=== PATIENT | female | born 1960 | race Caucasian/White ===

== ENCOUNTER → 2023-10-15 08:54 | Outpatient (CLI) | payer OTHER, SELFPAY ==
--- NOTE | ~2023-10-15 | CT_ITS ---
EXAMINATION: CT sinus wo con DATE: 10/15/2023 09:08 INDICATION: Chronic pansinusitis TECHNIQUE: Computed tomography (CT) of the paranasal sinuses was performed without contrast. Iterativ e reconstruction technique was employed. Exam dose: 273.81 mGy-cm total exam DLP. COMPARISON: None FINDINGS: There is leftward deviation involving the upper portion of the nasal septum. There is prominent soft tissue thickening of the nasal turbinates, left greater than right. Intralamellar cell of the middle nasal turbinates. There is mild to moderate mucoperiosteal thickening along the anterior lower aspect of the right maxi llary sinus. There is mild soft tissue thickening in each maxillary ostium and infundibulum but no bl ockage. Bilateral Jeffy cells. The mastoid air cells are well-developed and aerated. Middle and inner ear apparatus appear unremarka ble. IMPRESSION: Leftward deviation of superior nasal septum Intralamellar cell of the middle nasal turbinates Bilateral Jeffy cells Mild to moderate mucoperiosteal thickening of anterior lower aspect right maxillary sinus Mild soft tissue thickening of the maxillary ostium and infundibulum bilaterally, without obstruction Reviewed, dictated and finalized at [facility]. Reviewed, dictated and finalized at [facility]. UNDERWRITER IMPRESSION: Leftward deviation of superior nasal septum Intralamellar cell of the middle nasal turbinates Bilateral Jeffy cells Mild to moderate mucoperiosteal thickening of anterior lower aspect right maxil debra sinus Mild soft tissue thickening of the maxillary ostium and infundibulum bilaterall y, without obstruction
== END ==
PROVIDERS: PCP Otolaryngology; Visit Provider Otolaryngology
DX: J32.4 Chronic pansinusitis (principal); J34.2 Deviated nasal septum
CPT/HCPCS: 70486